=== PATIENT | male | born 1955 | race Caucasian/White ===

== ENCOUNTER 2022-11-17 14:35 | Emergency (ER) | payer MEDICARE, OTHER, SELFPAY ==
--- NOTE | ~2022-11-17 | XR_ITS ---
EXAMINATION: XR chest 2V DATE: 11/17/2022 15:05 INDICATION: Shortness of breath and cough TECHNIQUE: PA and lateral views of the chest were obtained. COMPARISON: Chest radiograph dated 05/14/2015 FINDINGS: Mild increased interstitial pattern with peripheral septal line thickening at the bilateral lower ricardo g zones most suggestive of mild pulmonary edema. Additional more linear, streaky and bandlike opaciti es at the bilateral lung bases favoring discoid atelectasis. No pleural effusion or pneumothorax. The cardiomediastinal silhouette is normal. There are bridging osteophytes at multiple levels in the spi ne, consistent with diffuse idiopathic skeletal hyperostosis (DISH). IMPRESSION: 1. Opacities in the bilateral lower lung zones and favor combination pulmonary edema and atelectasis although differential includes pneumonia. Reviewed, dictated and finalized at location A.
--- NOTE | 2022-11-17 14:47 | ED.SOB ---
HPI - SOB/Dyspnea General Chief Complaint: Shortness of Breath/Dyspnea Stated Complaint: Shortness of Breath Source: patient and RN notes reviewed History of Present Illness HPI Narrative: 67 yo M presents to urgent care with complaints of SOB x 3-4 weeks. Pt states the SOB is starting to get a little worse over the last week. Pt reports wearing a C-Pap at night and states he is now having some SOB even when he wears that. Pt reports it's worse when he lays down. Pt reports a mild, nagging, cough. Pt denies any fevers, chills, chest pain, GRANDA, dizziness, N/V, abdominal pain, congestion, sore throat, or ear pain. Pt does admit to not taking any BP meds for the last year or so due to insurance reasons. Pt denies any leg pain or swelling. Denies any chest pain. Related Data Home Medications Medication Instructions Recorded Confirmed subcutaneous insulin pump 11/17/22 11/17/22 Allergies Allergy/AdvReac Type Severity Reaction Status Date / Time No Known Allergies Allergy Unknown Verified 04/02/19 19:12 Review of Systems Review of Systems: CONSTITUTIONAL: Denies fever, chills, or sweats. EYES: Denies visual changes, redness, or discharge. ENT: Denies otalgia and sore throat CARDIOVASCULAR: Denies chest pain, palpitations, or edema. RESPIRATORY: cough and dyspnea. GASTROINTESTINAL: Denies abdominal pain, nausea, vomiting, or diarrhea. GENITOURINARY: Denies dysuria or hematuria. SKIN: Denies rash or itching. MUSCULOSKELETAL: Denies back pain, joint pain, or myalgia. NEUROLOGIC: Denies headache, numbness, or weakness. Pertinent positives per HPI. [facility] Family History Family History (Updated 04/10/14 @ 07:13 by DOCTOR UNKNOWN) Father Family history of type 2 diabetes mellitus Mother Family history of type 2 diabetes mellitus Social History Social History Smoking status: Never smoker Alcohol intake: current Comments At the time of my signature, I reviewed and agree with the nursing past medical, surgical, social, and family history. There is no relevant family history pertinent to the patient complaint. Exam Narrative: GENERAL: This is a well-nourished, well-developed patient, in no apparent distress. HEAD: normocephalic, atraumatic. EYES: Sclera clear/white. Vision is grossly intact. EARS: External ears normal, auditory canals clear and without drainage. Hearing grossly intact. NOSE: External nose normal with no obvious nasal discharge, nares without redness, no rhinorrhea. THROAT: Mucous membranes moist, posterior pharynx clear. NECK: Neck supple, non-tender without lymphadenopathy, masses or thyromegaly. CARDIOVASCULAR: Regular rate and rhythm without murmurs, gallops, or rubs. RESPIRATORY: Diminished in lower lobes. GASTROINTESTINAL: Abdomen soft, non-tender, nondistended. Bowel sounds are active. No hepato-splenomegaly, or palpable masses. No guarding. SKIN: warm, intact with no suspicious lesions or rash, good texture and turgor. NEURO: awake, alert, and oriented to person, place and time. There were no obvious focal neurologic abnormalities. EXTREMITIES: No clubbing, cyanosis. No joint tenderness, effusion. Bilateral lower extremity edema, non-pitting, pt states is normal for him. BACK: Nontender without deformity or crepitance. No flank tenderness. Course Course Level of Care: Express Care Visit Vital Signs Vital signs: Vital Signs Temperature 97.9 F 11/17/22 14:49 Pulse Rate 100 11/17/22 14:49 Respiratory Rate 18 11/17/22 14:49 Blood Pressure 212/99 H 11/17/22 14:49 Pulse Oximetry 94 11/17/22 14:49 Oxygen Delivery Room Air 11/17/22 14:49 Temperature 97.9 F 11/17/22 14:58 Pulse Rate 100 11/17/22 14:58 Respiratory Rate 18 11/17/22 14:58 Blood Pressure 200/97 H 11/17/22 15:22 Pulse Oximetry 94 11/17/22 14:58 Oxygen Delivery Room Air 11/17/22 14:58 Reviewed MDM - SOB/Dyspnea MDM Narrative Medical decision making narrative: If you de
[2022-11-17 14:49] VITALS: BP 212/99; PULSE 100; RESP 18; TEMP 36.6; O2SAT 94
[2022-11-17 14:58] VITALS: BP 212/99; PULSE 100; RESP 18; TEMP 36.6; O2SAT 94
[2022-11-17 15:22] VITALS: BP 200/97
== END 2022-11-17 15:38 | disposition home or self-care (01) ==
PROVIDERS: Emergency Provider Nurse Practitioner Family; PCP Family Medicine
DX: J81.1 Chronic pulmonary edema (principal); I10 Essential (primary) hypertension
CPT/HCPCS: 71046; 99213; G0463